=== PATIENT | female | born 1960 | race Caucasian/White ===

== ENCOUNTER 2023-04-06 10:02 | Day surgery (SDC) | payer MEDICARE, SELFPAY ==
[2023-04-06] VITALS (8 sets, daily range): BP systolic 101–114; BP diastolic 63–79; PULSE 64–92; RESP 16–20; TEMP 36.3–36.9; O2SAT 97–99; BMI 18.4
[2023-04-06] MEDS: Lactated Ringers 1,000 ML 50 ML IVCONT (11:05)
--- NOTE | 2023-04-06 12:25 | MHC.SHP ---
Pre-Procedural Eval Section A Date of Service: 04/06/23 The patient is an INPATIENT: No Changes since office visit: No Cold of Flu in the past 2 weeks, No New Medical Problems, No Changes in Medication and No Patient answered all questions The History & Physical has been completed within 30 days and I have reviewed it.: Yes Section B Chief Complaint: Epigastric pain,anemia Allergies: Allergies Allergy/AdvReac Type Severity Reaction Status Date / Time No Known Allergies Allergy Verified 04/06/23 10:52 Plan I have reviewed the history and physical and performed a pertinent physical examination on my patient. No changes have occurred unless specified. Time Spent With Patient Time: Total time managing care of this patient today ____ minutes.
--- NOTE | 2023-04-06 13:13 | HO.ANESPROP2 ---
[facility] Past Medical History Medical History (Updated 04/06/23 @ 10:55 by Angelina Plummer RN) History of depression Hx of cataract Hx of migraines Hx of osteopenia Family History Family history of problems with anesthesia: No Surgical History Surgical History (Updated 04/06/23 @ 10:55 by Angelina Plummer RN) Hx of bilateral cataract extraction Hx of colonoscopy History of Problems with Anesthesia: No Social History Social History Patient Tobacco Use Status: Former Tobacco user Are you DNR?: No Advance Directives: No Advance Directives Information Provided: Yes Recently lost weight without trying: No Nutrition Risks: No Nutritional Risk Meds Allergies Allergy/AdvReac Type Severity Reaction Status Date / Time No Known Allergies Allergy Verified 04/06/23 10:52 Active Medications: Current Medications Lactated Ringer's (Lr) 1,000 mls @ 50 mls/hr IVCONT .Q20H MAURISIO Last Admin: 04/06/23 11:05 Dose: 50 mls/hr Home Medications Medication Instructions Recorded Confirmed Last Taken Type dicyclomine 10 mg capsule 10 mg PO QID 04/06/23 04/06/23 04/06/23 History ferrous sulfate 324 mg (65 mg 324 mg PO DAILY 04/06/23 04/06/23 04/05/23 History iron) tablet,delayed release omeprazole 20 mg capsule,delayed 20 mg PO DAILY 04/06/23 04/06/23 04/06/23 History release ondansetron HCl 4 mg tablet 4 mg PO DAILY 04/06/23 04/06/23 04/06/23 History Exam Exam Date and Time: April 06, 2023 1313 Height,Weight and Vital Signs: Height 5 ft 6 in Weight 51.71 kg Last Vital Signs Temp 98.3 F 04/06/23 10:37 Pulse 65 04/06/23 10:37 Resp 20 04/06/23 10:37 BP 105/74 04/06/23 10:37 Pulse Ox 99 04/06/23 10:37 O2 Del Method Room Air 04/06/23 10:37 Airway Mallampati Class: II TM Dist: >3cm Neck ROM: Full Assessment and Plan Assessment Anesthesia Assessment: Anesthesia Plan Discussed and Chart Reviewed Final Anesthetic Review Family History of Problems with Anesthesia: No History of Problems with Anesthesia: No NPO: Yes ASA Class: II Final Preanesthetic Review: No Changes in Pt Med Stat, Meds/Allgs Chart Reviewed, Consent Obtained/Reviewed and Anes Risks/Benef Reviewed Patient Risk: Low Procedure Risk: Low Anesthetic Plan Anesthetic Plan: MAC: Disposition: Standard PACU
--- NOTE | 2023-04-06 14:48 | PM.OP ---
Brief Operative Note Date of Service: 04/06/23 Pre-op diagnosis: carlton epigastric pain n/v diarrhea Post-op diagnosis: same Procedure: egd Surgeon: Roosevelt Fatima Was an Complementary [employer] Therapists used for this Procedure?: No Estimated blood loss (mL): 2 Pathology: other Condition: stable Disposition: PACU
--- NOTE | 2023-04-06 21:27 | OP_ITS ---
DATE OF SERVICE: 04/06/2023 SURGEON: Roosevelt Fatima MD INDICATIONS: Iron deficiency anemia, epigastric pain, diarrhea, nausea, and vomiting. PREOPERATIVE DIAGNOSIS: POSTOPERATIVE DIAGNOSIS: PROCEDURE PERFORMED: Upper endoscopy with biopsy. ESTIMATED BLOOD LOSS: COMPLICATIONS: ANESTHESIA: Monitored anesthesia care. ASSISTANTS: SPECIMENS: DESCRIPTION OF PROCEDURE: A history and physical was performed. The risks and benefits of the procedure were explained to the patient, and informed consent was obtained. The patient was placed in the left lateral decubitus position. The Olympus video gastroscope was introduced into the esophagus, stomach, and duodenum. Examination was performed. The scope was removed. She tolerated the procedure well and was returned to the recovery area in stable condition. FINDINGS: Esophagus: The esophagus was normal. There was no esophagitis. There was an irregular EG junction and biopsies were obtained. Stomach: The stomach initially showed a moderate amount of retained liquid and undigested food. For this reason, the scope was removed and endotracheal intubation was performed for airway protection. The scope was reinserted and re-evaluation of stomach showed the aforementioned food and liquid, which was washed and suctioned as best possible. There was no mucosal abnormality identified in the stomach. Biopsies were obtained from the antrum. The posterior wall and fundus of the stomach were not well seen due to the retained food. Duodenum: The bulb and 2nd portion were normal. Biopsies were obtained from the 2nd portion. IMPRESSION: 1. Normal endoscopy. 2. Retained food, ?gastroparesis. RECOMMENDATION: 1. Follow up the biopsy results. 2. Obtain CAT scan as previously recommended. MD LESLIE Roberts/ALEJANDRO / [id number] [facility]
== END 2023-04-06 15:38 | disposition home or self-care (01) ==
PROVIDERS: PCP Physician Assistant; Visit Provider Internal Medicine Gastroenterology
PROC: 0DJ08ZZ Inspection of Upper Intestinal Tract, Via Natural or Artificial Opening Endoscopic (ICD-10-PCS; CPT 43235; principal; 2023-04-06 11:30)
DX: D50.9 Iron deficiency anemia, unspecified (principal); R10.13 Epigastric pain; R11.2 Nausea with vomiting, unspecified; R19.7 Diarrhea, unspecified; Z86.010 Personal history of colon polyps
CPT/HCPCS: 43239; 88305; 88342; J0330; J2765